=== PATIENT | female | born 1960 | race Caucasian/White ===

== ENCOUNTER 2016-08-20 07:25 | Day surgery (SDC) | payer OTHER ==
[2016-08-20] MEDS ORDERED: LR 1,000 ML IV ONE (08:19)
[2016-08-20] MEDS ORDERED: LIDOCAINE 1% 5 ML SDV ID PRN (08:19)
[2016-08-20] MEDS ORDERED: PROPOFOL/EMULSION 500 MG/50 ML BOTTLE IV ONE (09:51)
[2016-08-20] MEDS ORDERED: LIDOCAINE 2% 100 MG/5 ML SYR IVP ONE (09:52)
--- NOTE | 2016-08-20 10:56 | GPN ---
[f rep st] PROCEDURE NOTE PREPROCEDURE DIAGNOSIS: Dysphagia. POSTPROCEDURE DIAGNOSIS: Gastritis, normal exam for dysphagia. PROCEDURE: EGD with biopsies. MEDICATIONS: Monitored anesthesia care. INDICATION: The patient is a 56-year-old, obese female, who is here for dysphagia. She has a long h istory of chronic pain, as well as a cervical spinal fusion and spinal stimulator. She has recently been having increased dysphagia with solids, liquids and medications. The risks and the benefits of the procedure were discussed with the patient and consent obtained. Risks include, but not limited t o, bleeding, perforation, risks associated with sedation. The patient is ASA class 3. DESCRIPTION OF PROCEDURE: The end-viewing endoscope was inserted into the esophagus, into the stomac h and 2nd portion of the duodenum. The esophagus appears normal. Biopsies were taken using cold bio psy forceps to evaluate for eosinophilic esophagitis. The GE junction is normal and located at 38 cm from incisors. There is no evidence of esophagitis, varices or Ramirez's. The stomach shows mild t o moderate antral gastritis along with erosions. Biopsies are taken with cold biopsy forceps to eval uate for Helicobacter pylori. The duodenal 2nd portion is normal. Retroflexed views in the stomach are normal. IMPRESSION: 1. [id number] antral gastritis. 2. Normal exam for dysphagia. RECOMMENDATIONS: 1. Discharge to home with escort. 2. Advance diet as tolerated. 3. Continue present medications including acid suppression therapy. 4. Avoid nonsteroidal anti-inflammatory medications. 5. Follow up the final biopsy results. Results available within 10 days. 6. Consider video fluoroscopic swallow study and esophagogram if dysphagia is persistent and biopsie s unremarkable. Thank you for allowing me to participate in the care of your patient. Please do not hesitate to call with questions. /[id number]/MODL
== END 2016-08-20 10:50 | disposition home or self-care (01) ==
LOC: FSGY 07:25
PROVIDERS: ATTEND Internal Medicine Gastroenterology
DX: K29.70 Gastritis, unspecified, without bleeding (principal); E03.9 Hypothyroidism, unspecified; J45.909 Unspecified asthma, uncomplicated; G89.4 Chronic pain syndrome; Z88.0 Allergy status to penicillin; Z91.040 Latex allergy status; Z98.1 Arthrodesis status
CPT/HCPCS: J2001; J2704

== ENCOUNTER 2017-08-06 13:24 | Emergency (ER) | payer MEDICARE, OTHER ==
[2017-08-06 13:46] VITALS: TEMP 97.5
--- NOTE | 2017-08-06 13:56 | EDPHY ---
H & P Stated Complaint: slipped on ice impacted l knee/l wrist and low back Time Seen by Provider: 08/06/17 13:55 HPI/ROS: HPI: This is a 57-year-old female who presents with Chief Complaint: slipped on ice impacted l knee/l wrist and low back Location: Lower back, left hip, left knee, left wrist Quality: Injury Duration: Prior to arrival Signs and Symptoms: no LOC, no neck pain, no abdominal pain, No bleeding, no radiation, no numbness, no weakness, no tingling, no incontinence, + decreased range of motion, + swelling, + pain Timing: Acute Severity: 8 out of 10 Context: Patient has a history of chronic pain, cervical fusion, spinal cord stimulator presents with fall injury on a patch of ice near her building. She reports that slipped on this similar area several years ago. She reports that she did not see the patch of ice, accidentally slipped, and fell on her left side. She felt immediate pain in her left hip, left knee with abrasion and left wrist. She was ambulatory at the scene without assistance. Denies head injury/LOC/neck pain/abdominal pain/chest pain. She does report some nausea but no vomiting. Denies dizziness. Her friend drove her to the emergency room. She denies paresthesias. She reports that she has had multiple injuries and surgeries in her left knee as well as her left wrist. She does report a mild abrasion on the left lateral aspect of the knee. Reports her tetanus booster is up-to-date within the last 10 years. She has not applied ice or taking any medications prior to arrival. Modifying Factors: None Comment: ROS: see HPI Constitutional: No fever, no chills, no weight loss Eyes: No blurred vision Respiratory: No shortness of breath, no cough Cardiovascular: No chest pain Gastrointestinal: No nausea, no vomiting no diarrhea Genitourinary: No dysuria Extremities: No myalgias Neurologic: No weakness, no numbness Skin: No rashes Hematologic: No bruising, + bleeding MEDICAL/SURGICAL/SOCIAL HISTORY: Medical/surgical history: tbi, crps, spinal cord stimulator,panic attacks, anxiety,seizure disorder B wrist surgeries, neck fusion c2-c7, pleural fibrosis Social history: Unemployed. CONSTITUTIONAL: Very thin adult female who appears older than stated age, awake and alert, no obvious distress HEENT: Atraumatic and normocephalic, PERRL, EOMI. no globe entrapment, no raccoon eyes. no Mccollum signs.Tympanic membranes clear. No tympanic membrane rupture. Nares patent; no septal hematoma. Oropharynx clear, no exudate and moist pink mucosa. No malocclusion. no dental trauma. Airway patent. No lymphadenopathy. NECK: supple, no midline tenderness, flexion 45 degrees, extension 45 degrees, right and left lateral flexion 45 degrees. No meningismus. Cardiovascular: Normal S1/S2, tachycardia, regular rhythm, without murmur rub or gallop. PULMONARY/CHEST: Symmetrical and nontender. no crepitus. Clear to auscultation bilaterally. Good air movement. No accessory muscle usage. ABDOMEN: Soft, nondistended, nontender, no ecchymosis, no rebound, no guarding , no peritoneal signs, no masses or organomegaly. No CVAT. PELVIC: no pain with rocking; bilateral hips flexion 125 degrees, extension 30 degrees, with no pain internal rotation and no pain external rotation. Left hip mild tenderness over the greater trochanter without any ecchymosis. Leg lengths are equal. Left KNEE: no effusion, moderate medial and lateral joint line tenderness, flexion to 80 and refuses to fully extend secondary to pain. Moderate pain with varus and valgus exam. Minimal pain with anterior drawer or posterior drawer test. Left WRIST: Extension to 70, flexion to 80, radial deviation to 20 degree, ulnar deviation to 30, no scaphoid tenderness, no tenderness over ulnar styloid, moderate tenderness over radial styloid. Strength 5/5. BACK: No midline tenderness, no paraspinous spasm, deep tendon reflexes 2/2, no pain with straight leg raise EXTREMITIES: 2/2 pulses, no deformities, no clubbing, no cyanosis or edema. NEUROLOGICAL: no focal neuro deficits. GCS 15. SKIN: Warm and dry, no erythema. no rash. Good capillary refill. Source: Patient Exam Limitations: No limitations - Personal History Current Tetanus/Diphtheria Vaccine: Yes - Medical/Surgical History Hx Asthma: No Hx Chronic Respiratory Disease: No Hx Diabetes: No Hx Cardiac Disease: No Hx Renal Disease: No Hx Cirrhosis: No Hx Alcoholism: No Hx HIV/AIDS: No Hx Splenectomy or Spleen Trauma: No Other PMH: tbi,crps,spinal cord stimulator,panic attacks,anxiety,seizure disorder. B wrist surgeries. neck fusion c2-c7. pleural fibrosis - Social History Smoking Status: Never smoked Constitutional: Initial Vital Signs Temperature (C) 36.4 C 08/06/17 13:43 Heart Rate 104 H 08/06/17 13:43 Respiratory Rate 20 08/06/17 13:43 Blood Pressure 94/75 L 08/06/17 13:43 O2 Sat (%) 97 08/06/17 13:43 O2 Delivery Mode Room Air Allergies/Adverse Reactions: acetaminophen [From Tylenol] Allergy (Verified 06/02/09 15:28) hydrocodone [Hydrocodone] Allergy (Verified 08/13/16 13:38) latex [Latex] Allergy (Verified 08/13/16 13:38) midazolam HCl [From Versed] Allergy (Verified 08/13/16 13:38) Vomiting Penicillins Allergy (Verified 08/13/16 13:38) prednisone Allergy (Verified 08/13/16 13:38) Home Medications: Medication Instructions Recorded Clonazepam BID 01/30/14 Advair 100/50 (*) 03/26/16 Imitrex 03/26/16 Phenergan 03/26/16 Proair Hfa Icu (*) 03/26/16 Synthroid 03/26/16 Adderall 10 MG (*) 08/06/17 Trokendi Xr 08/06/17 oxyCODONE/APAP 5/325 [Percocet 1 - 2 tab PO Q4H PRN #10 tab 08/06/17 5/325 (*)] Medical Decision Making - Diagnostics Imaging Results: Imaging Impressions Hip X-Ray 08/06/17 14:03 Impression:1. Nothing acute identified. 2. Osteoporosis. This patient might benefit from a DEXA scan. 2. Left Hip Technique: AP pelvis and frog-leg left hip. Clinical Indications: Pain post fall Findings: No fracture. Alignment is anatomic. The pelvic ring is intact. There is a right pelvic TENS unit. There is severe degenerative narrowing of the L4- L5 disk space. The SI joints and pubic symphysis look normal. Impression: Nothing acute identified. 3. Left Knee, 5 views including a sunrise view History: Pain post trauma, fall Findings: There is a small suprapatellar knee joint effusion. No fracture or malalignment is identified. There is moderate degenerative narrowing of the medial joint compartment and mild widening of the lateral joint compartment. There is chondrocalcinosis of the lateral meniscus. The patient has had an old ACL repair. Metal Desmond is present along the anterior medial proximal tibial plateau. There is an old bone infarct in the distal femoral metaphysis. The patella is intact and normally located. There is prominent hypertrophic change of the patellofemoral joint. Impression: Knee joint effusion. No fracture. 4. Lumbar Spine, 2 upright views History: Pain post fall Findings: There is a mild-moderate lumbar levoscoliosis. There is a mild rightward listhesis of L3 on top of L4. There is a mild retrolisthesis at L4- L5. No fracture is identified. There is mild narrowing of the L1-L2 disk space and moderate to severe narrowing of the L2-L3 disk space where there is a vacuum phenomenon and marginal sclerosis and small osteophyte formation. There is moderate narrowing of the L3-L4 disk space and severe narrowing of the L4-L5 disk space. There are small anterior osteophytes also present between L3 and L5. There is an old healed ununited fracture of the right L3 transverse process. TENS unit wires are seen overlying the right lower chest and upper abdomen. Impression: Multilevel degenerative lumbar spondylosis. No acute fracture identified. Knee X-Ray 08/06/17 14:03 Impression:1. Nothing acute identified. 2. Osteoporosis. This patient might benefit from a DEXA scan. 2. Left Hip Technique: AP pelvis and frog-leg left hip. Clinical Indications: Pain post fall Findings: No fracture. Alignment is anatomic. The pelvic ring is intact. There is a right pelvic TENS unit. There is severe degenerative narrowing of the L4- L5 disk space. The SI joints and pubic symphysis look normal. Impression: Nothing acute identified. 3. Left Knee, 5 views including a sunrise view History: Pain post trauma, fall Findings: There is a small suprapatellar knee joint effusion. No fracture or malalignment is identified. There is moderate degenerative narrowing of the medial joint compartment and mild widening of the lateral joint compartment. There is chondrocalcinosis of the lateral meniscus. The patient has had an old ACL repair. Metal Desmond is present along the anterior medial proximal tibial plateau. There is an old bone infarct in the distal femoral metaphysis. The patella is intact and normally located. There is prominent hypertrophic change of the patellofemoral joint. Impression: Knee joint effusion. No fracture. 4. Lumbar Spine, 2 upright views History: Pain post fall Findings: There is a mild-moderate lumbar levoscoliosis. There is a mild rightward listhesis of L3 on top of L4. There is a mild retrolisthesis at L4- L5. No fracture is identified. There is mild narrowing of the L1-L2 disk space and moderate to severe narrowing of the L2-L3 disk space where there is a vacuum phenomenon and marginal sclerosis and small osteophyte formation. There is moderate narrowing of the L3-L4 disk space and severe narrowing of the L4-L5 disk space. There are small anterior osteophytes also present between L3 and L5. There is an old healed ununited fracture of the right L3 transverse process. TENS unit wires are seen overlying the right lower chest and upper abdomen. Impression: Multilevel degenerative lumbar spondylosis. No acute fracture identified. Lumbar Spine X-Ray 08/06/17 14:03 Impression:1. Nothing acute identified. 2. Osteoporosis. This patient might benefit from a DEXA scan. 2. Left Hip Technique: AP pelvis and frog-leg left hip. Clinical Indications: Pain post fall Findings: No fracture. Alignment is anatomic. The pelvic ring is intact. There is a right pelvic TENS unit. There is severe degenerative narrowing of the L4- L5 disk space. The SI joints and pubic symphysis look normal. Impression: Nothing acute identified. 3. Left Knee, 5 views including a sunrise view History: Pain post trauma, fall Findings: There is a small suprapatellar knee joint effusion. No fracture or malalignment is identified. There is moderate degenerative narrowing of the medial joint compartment and mild widening of the lateral joint compartment. There is chondrocalcinosis of the lateral meniscus. The patient has had an old ACL repair. Metal Desmond is present along the anterior medial proximal tibial plateau. There is an old bone infarct in the distal femoral metaphysis. The patella is intact and normally located. There is prominent hypertrophic change of the patellofemoral joint. Impression: Knee joint effusion. No fracture. 4. Lumbar Spine, 2 upright views History: Pain post fall Findings: There is a mild-moderate lumbar levoscoliosis. There is a mild rightward listhesis of L3 on top of L4. There is a mild retrolisthesis at L4- L5. No fracture is identified. There is mild narrowing of the L1-L2 disk space and moderate to severe narrowing of the L2-L3 disk space where there is a vacuum phenomenon and marginal sclerosis and small osteophyte formation. There is moderate narrowing of the L3-L4 disk space and severe narrowing of the L4-L5 disk space. There are small anterior osteophytes also present between L3 and L5. There is an old healed ununited fracture of the right L3 transverse process. TENS unit wires are seen overlying the right lower chest and upper abdomen. Impression: Multilevel degenerative lumbar spondylosis. No acute fracture identified. Wrist X-Ray 08/06/17 14:03 Impression:1. Nothing acute identified. 2. Osteoporosis. This patient might benefit from a DEXA scan. 2. Left Hip Technique: AP pelvis and frog-leg left hip. Clinical Indications: Pain post fall Findings: No fracture. Alignment is anatomic. The pelvic ring is intact. There is a right pelvic TENS unit. There is severe degenerative narrowing of the L4- L5 disk space. The SI joints and pubic symphysis look normal. Impression: Nothing acute identified. 3. Left Knee, 5 views including a sunrise view History: Pain post trauma, fall Findings: There is a small suprapatellar knee joint effusion. No fracture or malalignment is identified. There is moderate degenerative narrowing of the medial joint compartment and mild widening of the lateral joint compartment. There is chondrocalcinosis of the lateral meniscus. The patient has had an old ACL repair. Metal Desmond is present along the anterior medial proximal tibial plateau. There is an old bone infarct in the distal femoral metaphysis. The patella is intact and normally located. There is prominent hypertrophic change of the patellofemoral joint. Impression: Knee joint effusion. No fracture. 4. Lumbar Spine, 2 upright views History: Pain post fall Findings: There is a mild-moderate lumbar levoscoliosis. There is a mild rightward listhesis of L3 on top of L4. There is a mild retrolisthesis at L4- L5. No fracture is identified. There is mild narrowing of the L1-L2 disk space and moderate to severe narrowing of the L2-L3 disk space where there is a vacuum phenomenon and marginal sclerosis and small osteophyte formation. There is moderate narrowing of the L3-L4 disk space and severe narrowing of the L4-L5 disk space. There are small anterior osteophytes also present between L3 and L5. There is an old healed ununited fracture of the right L3 transverse process. TENS unit wires are seen overlying the right lower chest and upper abdomen. Impression: Multilevel degenerative lumbar spondylosis. No acute fracture identified. ED Course/Re-evaluation: Left wrist x-ray, left hip x-ray, left knee x-ray, lumbar sacral spine x-ray, oral medication ordered No LOC. No neurological deficits. Let topical; Patient's abrasion on her left knee clean with mild soap and water ; bacitracin and clean sterile dressing applied. Tetanus up-to-date Wrist x-ray reviewed and shows no sign of fracture/dislocation Left knee x-ray reviewed and shows changes consistent with prior surgeries; no fracture/dictation Left hip x-ray reviewed; no fracture/dislocation Lumbar sacral spine view; + degenerative disc disease, spinal stimulator noted, moderate stool burden Patient refused Velcro wrist splint. Patient accepted left knee immobilizer. Patient reports that she has crutches at home and does not need any to be given to her. Given xrays discs on CD No signs of neurovascular compromise/tenting of skin/compartment syndrome/ extremities and joints examined above and below area of concern and are neurovascularly intact. This patient was seen under the supervision of my secondary supervising physician. I evaluated care for this patient independently. Differential Diagnosis: Knee injury while [] including but not limited to fracture, ACL injury, contusion, muscular strain, and meniscus injury. - Data Points Medications Given: Discontinued Medications Ibuprofen (Motrin) 600 mg PO EDNOW ONE Stop: 08/06/17 14:04 Last Admin: 08/06/17 14:26 Dose: Not Given Naproxen (Aleve) 220 mg PO EDNOW ONE Stop: 08/06/17 14:28 Last Admin: 08/06/17 15:01 Dose: Not Given Oxycodone/Acetaminophen (Percocet 5/325) 1 tab PO EDNOW ONE Stop: 08/06/17 15:26 Last Admin: 08/06/17 15:34 Dose: 1 tab Tetracaine/Epinephrine/Lidocaine (Let Gel Topical) 1 ea TP EDNOW ONE Stop: 08/06/17 14:03 Last Admin: 08/06/17 14:12 Dose: 1 ea Departure - Departure Disposition: Home, Routine, Self-Care Clinical Impression: Abrasion, left knee, initial encounter, Contusion of left hip, initial encounter, Internal derangement of left knee Fall due to ice or snow Qualifiers: Encounter type: initial encounter Qualified Code(s): W00.9XXA - Unspecified fall due to ice and snow, initial encounter Sprain of left wrist Qualifiers: Encounter type: initial encounter Qualified Code(s): S63.502A - Unspecified sprain of left wrist, initial encounter Condition: Good Instructions: Contusion in Adults (ED), Abrasion (ED), Wrist Sprain (ED) Additional Instructions: Keep the dressing on your left knee dry and in place for 48 hours. After 48 hours, you may remove the dressing; wash the site daily with mild soap and water; then pat dry. Take Tylenol 650 mg every 4 hours and/or Ibuprofen 600 mg every 8 hours with food as needed for pain. Use Percocet every 6 hours as needed for severe/breakthrough pain. Do not use Tylenol and Percocet concomitantly. Follow up with Orthopedics in 7-10 days if symptoms persist or worsen at which time they will evaluate and recommend with you if conservative management versus surgery is indicated. The x-rays obtained in the emergency department today demonstrate no evidence of an obvious fracture. Sometimes fractures are not obvious on the initial set of x-rays performed in the ED. For this reason, you should have repeat x-rays performed in 7-10 days if you are having any pain exclude the possibility of an occult fracture. Referrals: BERNA PINO [Other] - As per Instructions Kobe Beasley MD [Medical Doctor] - As per Instructions Prescriptions: oxyCODONE/APAP 5/325 [Percocet 5/325 (*)] 1 - 2 tab PO Q4H PRN #10 tab PRN Reason: Pain, Severe
[2017-08-06] MEDS ORDERED: LET GEL TOPICAL 1 EA SYR TP ONE (14:02)
[2017-08-06] MEDS ORDERED: IBUPROFEN 600 MG TAB PO ONE (14:03)
[2017-08-06] MEDS ORDERED: NAPROXEN SODIUM 220 MG TAB PO ONE (14:27)
[2017-08-06 15:24] VITALS: BP 115/72; PULSE 76; RESP 16; O2SAT 96
[2017-08-06] MEDS ORDERED: OXYCODONE/APAP 5/325 TAB PO ONE (15:25)
== END 2017-08-06 17:45 | disposition home or self-care (01) ==
DX: S63.502A Unspecified sprain of left wrist, initial encounter (principal); M23.92 Unspecified internal derangement of left knee; S70.02XA Contusion of left hip, initial encounter; Z91.040 Latex allergy status; W00.9XXA Unspecified fall due to ice and snow, initial encounter
CPT/HCPCS: L1830

== ENCOUNTER → 2017-09-18 | Outpatient (CLI) | payer OTHER, MEDICARE | LOC: FIMAGING 10:25 | PROVIDERS: ATTEND Physical Medicine & Rehabilitation | DX: R10.2 Pelvic and perineal pain (principal); M54.5 Low back pain; M51.36 Other intervertebral disc degeneration, lumbar region; M48.061 Spinal stenosis, lumbar region without neurogenic claudication ==

== ENCOUNTER 2018-03-30 15:05 | Emergency (ER) | payer OTHER, MEDICARE ==
--- NOTE | 2018-03-30 16:35 | EDPHY ---
General Time Seen by Provider: 03/30/18 16:29 - History Smoking Status: Never smoked - Objective Vital Signs: Initial Vital Signs Temperature (C) 97.7 F 03/30/18 15:09 Heart Rate 79 03/30/18 15:09 Respiratory Rate 18 03/30/18 15:09 Blood Pressure 114/75 03/30/18 15:09 O2 Sat (%) 100 03/30/18 15:09 O2 Delivery Mode Room Air Allergies/Adverse Reactions: acetaminophen [From Tylenol] Allergy (Verified 03/30/18 15:08) hydrocodone [Hydrocodone] Allergy (Verified 03/30/18 15:08) latex [Latex] Allergy (Verified 03/30/18 15:08) midazolam HCl [From Versed] Allergy (Verified 03/30/18 15:08) Vomiting Penicillins Allergy (Verified 03/30/18 15:08) prednisone Allergy (Verified 03/30/18 15:08) Home Medications: Medication Instructions Recorded Clonazepam BID 01/30/14 Advair 100/50 (*) 03/26/16 Imitrex 03/26/16 Phenergan 03/26/16 Proair Hfa Icu (*) 03/26/16 Synthroid 03/26/16 Adderall 10 MG (*) 08/06/17 Trokendi Xr 08/06/17 oxyCODONE/APAP 5/325 [Percocet 1 - 2 tab PO Q4H PRN #10 tab 08/06/17 5/325 (*)] Departure - Departure Referrals: HON ALVAREZ [Primary Care Provider] - As per Instructions
[2018-03-30] MEDS ORDERED: ONDANSETRON DISINTEGRATING 4 MG TAB PO ONE (17:27)
--- NOTE | 2018-03-30 17:36 | EDPHY ---
H & P Time Seen by Provider: 03/30/18 16:29 HPI/ROS: HPI Head injury. 58-year-old female by private vehicle. This patient reports that she was brushing her teeth in her bathroom. She was wearing nylon cycling socks. She reports that she slipped on the bathroom floor, falling forward striking her left lateral brow ridge on the doorjam. She reports she has pain isolated to this area of her skull. She reports that she did lose consciousness. She has a prior history of head injury. She reports that she struck her head in the same place on February 23 after slipping in the shower. She is not on anticoagulation or antiplatelet medications. She does complain of some soreness to the left lateral upper neck. She also complains of some nausea but has not had any vomiting. Otherwise she has no other complaint. No extremity pain. No loss of sensation or weakness in her extremities. ROS: Constitutional: No fever, no chills. As above. Eyes: No discharge. No changes in vision. ENT: No sore throat. No nasal congestion or rhinorrhea. Respiratory: No cough. No shortness of breath. Cardiac: No chest pain, no palpitations. Gastrointestinal: No abdominal pain, no vomiting, no diarrhea. Genitourinary: No hematuria. No dysuria or increased frequency with urination. Musculoskeletal: No back pain. No neck pain. No myalgias or arthralgias. Skin: No rashes. Neurological: As above. No focal weakness or altered sensation. Past medical history: Traumatic brain injury, panic attacks, seizure disorder, anxiety, fusion of C2 through C7, pleural fibrosis. Social history: Nonsmoker. Has a condominium in lives alone. No alcohol. Physical Exam: General Appearance: Alert, no distress. This patient is responding to questions appropriately and in full sentences. This patient appears well- hydrated and well-nourished. Head: Normocephalic atraumatic except for a contusion about the size of a quarter left lateral brow ridge. No bony step-off or deformity noted on palpation of this.. Face: Facial bones are stable on palpation. Eyes: Pupils equal and round and reactive to light, no pallor or injection. No lid erythema or edema. No nystagmus. Mild photophobia. ENT, Mouth: Mucous membranes moist. Dentition is intact. No malocclusion of the jaw. No tongue lacerations or abrasions. Pharynx is clear. The bilateral nasal canals are clear. No septal hematoma. Respiratory: There are no retractions, lungs are clear to auscultation with good air movement bilaterally. Chest wall is stable to AP and lateral palpation. Cardiovascular: Regular rate and rhythm. No murmur. Gastrointestinal: Abdomen is soft and nontender, no masses, bowel sounds normal. Neurological: Motor sensory function is intact. Cranial nerves are normal. Cerebellar function intact. Skin: Warm and dry, no rashes. No lacerations, abrasions or contusions. Musculoskeletal: Neck is supple with vague and mild mid posterior lateral tenderness on palpation. The trachea is midline. No midline cervical, thoracic , lumbar or sacral tenderness on palpation. No flank tenderness on palpation. Extremities are symmetrical, full range of motion. All joints in the bilateral upper and bilateral lower extremities range without pain or impingement. No tenderness on palpation of the long bones in the bilateral upper and bilateral lower extremities. Psychiatric: No agitation. No depression. Database: EKG: Imaging: CT head without contrast: No acute pathology. Results were discussed with staff radiologist Dr. Chandana Murphy. Procedures: Emergency department course: Triage vital signs reviewed and are normal. The patient's neurologic exam is unremarkable. Her presentation is consistent with a mild concussion syndrome. She endorses obtaining CT imaging of her brain. She was given 4 mg ODT Zofran for nausea. 6:20 p.m., patient re-evaluated. Resting comfortably at this time. Results of CT discussed with her. Repeat neurologic Assessment is nonfocal. She is up and ambulatory with a normal gait on under her own power and without difficulty. She feels comfortable going home and I feel she is safe for discharge. Head injury precautions reviewed with her. Follow-up and return to emergency department precautions reviewed. All of her questions were answered. She was discharged from the emergency department in good condition. Differential Diagnosis: The differential diagnosis on this patient includes but is not limited to minor head injury, concussion syndrome. Traumatic subarachnoid hemorrhage, subdural hematoma, epidural hematoma, skull fracture, other significant traumatic injury unlikely. This represents a partial list of diagnoses considered. These considerations are based on history, physical exam, past history, reassessment and diagnostic testing. Smoking Status: Never smoked Constitutional: Initial Vital Signs Temperature (C) 36.5 C 09/17/18 15:09 Heart Rate 79 03/30/18 15:09 Respiratory Rate 18 03/30/18 15:09 Blood Pressure 114/75 03/30/18 15:09 O2 Sat (%) 100 03/30/18 15:09 O2 Delivery Mode Room Air Allergies/Adverse Reactions: acetaminophen [From Tylenol] Allergy (Verified 03/30/18 15:08) hydrocodone [Hydrocodone] Allergy (Verified 03/30/18 15:08) latex [Latex] Allergy (Verified 03/30/18 15:08) midazolam HCl [From Versed] Allergy (Verified 03/30/18 15:08) Vomiting Penicillins Allergy (Verified 03/30/18 15:08) prednisone Allergy (Verified 03/30/18 15:08) Home Medications: Medication Instructions Recorded Clonazepam BID 01/30/14 Advair 100/50 (*) 03/26/16 Imitrex 03/26/16 Phenergan 03/26/16 Proair Hfa Icu (*) 03/26/16 Synthroid 03/26/16 Adderall 10 MG (*) 08/06/17 Trokendi Xr 08/06/17 oxyCODONE/APAP 5/325 [Percocet 1 - 2 tab PO Q4H PRN #10 tab 08/06/17 5/325 (*)] Ondansetron Odt [Zofran Odt 4 mg 4 mg PO Q4PRN PRN #10 tab 03/30/18 (*)] Medical Decision Making - Diagnostics Imaging Results: Imaging Impressions Head CT 03/30/18 17:27 Impression: 1. Cerebrovascular atherosclerosis. 2. Otherwise, normal CT brain, without contrast. 3. No epidural or subdural hematoma. Findings and recommendations discussed with Emergency Department physician, Sarina Ku M.D., at 1800 hours, on March 30, 2018. Final report concurs with initial preliminary interpretation. - Data Points Medications Given: Discontinued Medications Ondansetron HCl (Zofran Odt) 4 mg PO EDNOW ONE Stop: 03/30/18 17:28 Last Admin: 03/30/18 17:33 Dose: 4 mg Departure - Departure Disposition: Home, Routine, Self-Care Clinical Impression: Head injury Condition: Good Instructions: Head Injury (ED) Additional Instructions: Read and follow provided instructions. Follow-up with your primary care physician or neurologist in 1-2 days for re- evaluation as discussed. Take your medication as prescribed. Take medication as prescribed only as needed for nausea. Return to the emergency department for worsening headache, vomiting, confusion or other serious concerns. Referrals: HON ALVAREZ [Primary Care Provider] - As per Instructions Prescriptions: Ondansetron Odt [Zofran Odt 4 mg (*)] 4 mg PO Q4PRN PRN #10 tab PRN Reason: For Nausea & Vomiting
[2018-03-30 18:20] VITALS: BP 107/68
== END 2018-03-30 18:39 | disposition home or self-care (01) ==
DX: S09.90XA Unspecified injury of head, initial encounter (principal); W01.198A Fall on same level from slipping, tripping and stumbling with subsequent striking against other object, initial encounter; Y92.002 Bathroom of unspecified non-institutional (private) residence as the place of occurrence of the external cause; Y93.E8 Activity, other personal hygiene; Y99.9 Unspecified external cause status